=== PATIENT | male | born 1965 | race Two or more races ===

== ENCOUNTER 2018-04-17 03:28 | Emergency (ER) | payer MEDICAID | END 2018-04-17 05:20 | disposition home or self-care (01) | LOC: E/R 03:28 | DX: F10.10 Alcohol abuse, uncomplicated (principal); R40.2142 Coma scale, eyes open, spontaneous, at arrival to emergency department; R40.2252 Coma scale, best verbal response, oriented, at arrival to emergency department; R40.2362 Coma scale, best motor response, obeys commands, at arrival to emergency department; I10 Essential (primary) hypertension | CPT/HCPCS: 99282; Z7502 ==